=== PATIENT | male | born 1985 | race American Indian/Alaskan Native ===

== ENCOUNTER 2016-10-02 11:02 | Emergency (ER) | payer SELFPAY ==
[2016-10-02 11:30] VITALS: BP 113/67
[2016-10-02 12:24] LABS: Bilirubin,Urine NEG (Negative); Blood,Urine NEG (Negative); Ketones,Urine NEG (Negative); Leukocyte Esterase,Urine NEG (Negative); Mucus,Urine FEW /HPF; Nitrite,Urine NEG (Negative); Protein,Urine <15 mg/dL mg/dL (Negative)
[2016-10-02 14:54] LABS: Bacteria,Urine 1+ /HPF (Negative)
[2016-10-02] MEDS ORDERED: XYLOCAINE 1% MPF 5 mL INFILTRATI ONE (16:10)
[2016-10-02] MEDS ORDERED: ZITHROMAX PO ONE (16:10)
[2016-10-02] MEDS ORDERED: ROCEPHIN IM ONE (16:10)
--- NOTE | 2016-10-04 07:31 | Emergency Department Report ---
Entered by MAURO SALAMANCA, acting as scribe for CARI SNOWDEN NP. ED Male HPI - General Chief complaint: Urogenital-Male Stated complaint: POSS STD Time Seen by Provider: 10/02/16 15:28 Source: patient Mode of arrival: Ambulatory Limitations: No Limitations - History of Present Illness Initial comments: 31 y/o male, non toxic, well nourished, NAD, PMHx of HIV, STD c/o of dysuria beginning 2 days ago, no aggravating or alleviating factors, burning in quality , 4/10 severity. Denies, scrotal pain, lesions, itching, penile discharge, swelling, rash, fever, nausea, vomiting, chills, ELKINS, abdominal pain, chest pain , SOB. Patient states he is homosexual and has no new partners, however he is not sure about his partner's recent sexual activity. Patient is concerned about gonorrhea and chlamydia. Pt notes his Sx are consistent with previous STD's. MD Complaint: dysuria -: days(s) (2) Location: penis Radiation: none Severity: mild Severity scale (0 -10): 4 Quality: burning Consistency: constant Improves with: none Worsens with: none dysuria. denies: discharge, swelling, rash, fever, nausea/vomiting - Related Data Home Medications Medication Instructions Recorded Confirmed Last Taken Unobtainable 10/02/16 10/02/16 Unknown Allergies Allergy/AdvReac Type Severity Reaction Status Date / Time No Known Allergies Allergy Unverified 10/02/16 11:27 ED Review of Systems Comment: All other systems reviewed and negative Constitutional: denies: chills, fever Respiratory: denies: shortness of breath Cardiovascular: denies: chest pain Gastrointestinal: denies: abdominal pain, nausea, vomiting, diarrhea Genitourinary: dysuria. denies: discharge, testicular pain Skin: denies: rash, lesions, pruritus, other (itching) Neurological: denies: headache ED Past Medical Hx - Past Medical History Previous Medical History?: Yes Hx HIV: Yes - Surgical History Past Surgical History?: No - Social History Smoking Status: Current Every Day Smoker Substance Use Type: Alcohol, Cocaine, Non Opiate Pain, Prescribed - Medications Home Medications: Home Medications Medication Instructions Recorded Confirmed Last Taken Type Unobtainable 05/16/17 05/16/17 Unknown History ED Physical Exam - General Limitations: No Limitations General appearance: alert, in no apparent distress - Head Head exam: Present: atraumatic, normocephalic - Eye Eye exam: Present: normal appearance, PERRL, EOMI - ENT ENT exam: Present: normal exam, mucous membranes moist - Neck Neck exam: Present: normal inspection, full ROM. Absent: tenderness, meningismus, lymphadenopathy - Respiratory Respiratory exam: Present: normal lung sounds bilaterally. Absent: respiratory distress, wheezes - Cardiovascular Cardiovascular Exam: Present: regular rate, normal rhythm, normal heart sounds. Absent: systolic murmur, diastolic murmur, rubs, gallop - GI/Abdominal GI/Abdominal exam: Present: soft, normal bowel sounds. Absent: tenderness, guarding, rebound - exam: Absent: testicular tenderness, urethral discharge, scrotal swelling, vertical testicular lie, other (no purulent drainage, no penile discharge) External exam: Absent: erythema, swelling, lesions, lacerations, ecchymosis, bleeding - Extremities Exam Extremities exam: Present: normal inspection, full ROM, normal capillary refill. Absent: tenderness, pedal edema - Back Exam Back exam: Present: normal inspection, full ROM. Absent: tenderness, CVA tenderness (R), CVA tenderness (L) - Neurological Exam Neurological exam: Present: alert, oriented X3, CN II-XII intact, normal gait - Psychiatric Psychiatric exam: Present: normal affect, normal mood - Skin Skin exam: Present: intact, normal color. Absent: rash, erythema, other ( itching) ED Course Vital Signs 10/02/16 11:27 Temperature 98.6 F Pulse Rate 70 Respiratory 18 Rate Blood Pressure 113/67 O2 Sat by Pulse 98 Oximetry ED Medical Decision Making - Medical Decision Making Ed course: This is a 31-year-old male that presents with possible exposure to gonorrhea Chlamydia. 1- after my physical exam, patient received azithromycin 1 g and Rocephin 250 mg IM in the ED. 2- a UA has been obtained as well as gonorrhea chlamydia and was sent to lab. UA does not show urinary tract infection. Patient was instructed to follow-up in 7 days with medical records for gonorrhea chlamydia results. 3- patient was instructed to follow-up with her primary care doctor in 3-5 days or if symptoms worsen to prevent emergency room. 4- at the time of discharge the patient does not seem toxic or ill in appearance. No signs of distress noted. Patient agrees to discharge treatment plan. No further questions noted by the patient. ED Disposition Clinical Impression: Possible exposure to STD Disposition: DISCHARGED TO HOME OR SELFCARE Is pt being admited?: No Does the pt Need Aspirin: No Condition: Stable Instructions: Chlamydia Infection (ED), Sexually Transmitted Diseases (ED) Additional Instructions: Return back to [facility] medical records to obtain the results of gonorrhea chlamydia in 7 days. Follow-up with your primary care doctor in 3-5 days or if symptoms worsen report back to the ER. Referrals: PRIMARY CARE, [Primary Care Provider] - 3-5 Days [facility] [Outside] - 3-5 Days [facility] [Outside] - 3-5 Days Forms: Work/School Release Form(ED) This documentation as recorded by the JADYN andrea MATHEW,accurately reflects the service I personally performed and the decisions made by me,CARI SNOWDEN, JESSIE.
== END 2016-10-02 16:35 | disposition home or self-care (01) ==
LOC: ED 11:02
DX: R30.0 Dysuria (principal); F17.200 Nicotine dependence, unspecified, uncomplicated; F14.10 Cocaine abuse, uncomplicated
CPT/HCPCS: 81001; 87591; 96372; 99282; J0696

== ENCOUNTER 2016-10-15 11:21 | Emergency (ER) | payer SELFPAY ==
[2016-10-15 11:30] VITALS: BP 106/70
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
[2016-10-15 12:54] LABS: Bilirubin,Urine NEG (Negative); Blood,Urine NEG (Negative); Ketones,Urine TR mg/dL (Negative); Leukocyte Esterase,Urine NEG (Negative); Nitrite,Urine NEG (Negative); Protein,Urine <15 mg/dL mg/dL (Negative)
[2016-10-15] MEDS ORDERED: ZOVIRAX PO ONE (13:24)
== END 2016-10-15 14:53 | disposition home or self-care (01) ==
LOC: ED 11:21
DX: B00.9 Herpesviral infection, unspecified (principal); F17.200 Nicotine dependence, unspecified, uncomplicated; F14.10 Cocaine abuse, uncomplicated; F12.10 Cannabis abuse, uncomplicated
CPT/HCPCS: 81001; 87591; 99283

== ENCOUNTER 2016-10-31 21:19 | Emergency (ER) | payer SELFPAY | END 2016-10-31 21:45 | disposition left against medical advice (07) | LOC: ED 21:19 | DX: L98.9 Disorder of the skin and subcutaneous tissue, unspecified (principal); Z53.21 Procedure and treatment not carried out due to patient leaving prior to being seen by health care provider ==